=== PATIENT | male | born 1975 | race Caucasian/White ===

== ENCOUNTER 2016-12-03 15:52 | Emergency (ER) | payer BC ==
[2016-12-03 15:58] VITALS: BP 156/104; PULSE 116; TEMP 98.4; BMI 35.2
--- NOTE | 2016-12-03 16:24 | PDOC ---
History of Present Illness - General Chief Complaint: Rash Stated Complaint: RASH Time Seen by Provider: 12/03/16 16:18 - History of Present Illness Initial Comments: 12/03/16 16:42 Chief complaint: Poison carmencita History of present illness: Severe poison carmencita of the arms, trunk, and neck. Initially improved when he was prescribed prednisone approximately one week ago. On his last day of a taper, and symptoms appear to be worsening Physical exam: Alert oriented well-developed well-nourished no acute distress Afebrile, blood pressure initially elevated to 150/105, declining to 140/90 with rest Diffuse eczematous eruption without weeping or other sign of superinfection, worse on the left forearm and also present on the right forearm, abdomen, and neck. Impression: Poison carmencita, with rebound upon tapering of steroids Plan: Increase oral prednisone, wet-to-dry dressings, antihistamines, and close follow-up. Patient is aware of the detrimental effects of prednisone on blood pressure, sugar, and bone health. However, he must frequently uses prednisone for both his asthma and his skin eczema. Instructed to follow-up with link trainer mechanic if there is no improvement, and to taper his dose of prednisone after one week as rapidly as possible. Past History - Past Medical History Allergies/Adverse Reactions: Allergies Allergy/AdvReac Type Severity Reaction Status Date / Time No Known Drug Allergies Allergy Verified 12/03/16 15:53 Stock Ragweed Herberth Allergy Mild Itching Uncoded 12/03/16 15:53 *RETIRED-04/12/12 Home Medications: Ambulatory Orders Albuterol Sulfate [Proair Respiclick] 90 mcg IH DAILY 12/03/16 Aluminum Acetate [Burow's Solution -] 1 applic TP BID #1 btl 12/03/16 Lisinopril [Prinivil -] 40 mg PO DAILY 12/03/16 Metoprolol Succinate [Toprol XL -] 100 mg PO DAILY 12/03/16 Omeprazole 20 mg PO DAILY 12/03/16 Prednisone [Deltasone -] 40 mg PO DAILY #30 tablet 12/03/16 Anemia: No Asthma: Yes Cancer: No Cardiac Disorders: No CVA: No COPD: No CHF: No Dementia: No Diabetes: No GI Disorders: Yes (gerd) Disorders: No HTN: Yes Hypercholesterolemia: Yes Liver Disease: No Seizures: No Thyroid Disease: No - Surgical History Abdominal Surgery: Yes (LAPBAND) Appendectomy: No Cardiac Surgery: No Cholecystectomy: Yes Lung Surgery: No Neurologic Surgery: No Orthopedic Surgery: No - Immunization History Immunization Up to Date: Yes - Psycho/Social/Smoking Cessation Hx Anxiety: No Suicidal Ideation: No Smoking Status: Yes (QUIT 2004) Smoking History: Never smoked Have you smoked in the past 12 months: No Number of Cigarettes Smoked Daily: 2 If you are a former smoker, when did you quit?: 2006 Information on smoking cessation initiated: No 'Breaking Loose' booklet given: 10/09/15 Hx Alcohol Use: No Drug/Substance Use Hx: No Substance Use Type: None Hx Substance Use Treatment: No *Physical Exam - Vital Signs Last Vital Signs Temp Pulse Resp BP Pulse Ox 98.4 F 116 H 18 156/104 97 12/03/16 15:52 12/03/16 15:52 12/03/16 15:52 12/03/16 15:52 12/03/16 15:52 *DC/Admit/Observation/Transfer Diagnosis at time of Disposition: Rhus dermatitis - Discharge Dispostion Disposition: HOME Condition at time of disposition: Stable Admit: No - Prescriptions Prescriptions: Aluminum Acetate [Burow's Solution -] 1 applic TP BID #1 btl Prednisone [Deltasone -] 40 mg PO DAILY #30 tablet - Patient Instructions Printed Discharge Instructions: DI for Poison Carmencita Allergy Additional Instructions: Take Benadryl, especially at night, for itching, 1 or 2 capsules. Borrows solution wet-to-dry soaks See your primary physician 2-3 days to check your blood pressure and your sugar. Prednisone can adversely affect her blood pressure and sugar, as well as bones.
== END 2016-12-03 16:35 | disposition home or self-care (01) ==
LOC: FER 15:52
DX: L23.7 Allergic contact dermatitis due to plants, except food (principal); K21.9 Gastro-esophageal reflux disease without esophagitis; I10 Essential (primary) hypertension; E78.00 Pure hypercholesterolemia, unspecified; Z98.84 Bariatric surgery status; J45.909 Unspecified asthma, uncomplicated; Z87.891 Personal history of nicotine dependence
CPT/HCPCS: 99281-25

== ENCOUNTER 2019-07-31 13:02 | Emergency (ER) | payer OTHER, BC ==
[2019-07-31 13:13] VITALS: TEMP 97.8; BMI 30.5
[2019-07-31] MEDS ORDERED: ACETAMINOPHEN 500 MG TABLET (FP) PO ONE (13:15)
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
[2019-07-31] MEDS ORDERED: ONDANSETRON *ODT* 4 MG TABLET SL ONE (13:16)
[2019-07-31] MEDS ORDERED: ACETAMINOPHEN 325 MG TABLET (FP) ONE (13:41)
[2019-07-31] MEDS ORDERED: ONDANSETRON *ODT* 4 MG TABLET ONE (13:41)
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
[2019-07-31 14:44] LABS: COCAINE, UR NEGATIVE ng/ml (CUTOFF=300); METHADONE, UR NEGATIVE ng/ml (CUTOFF=300); OPIATES, URI NEGATIVE ng/ml (CUTOFF=300); PHENCYCLIDINE,URINE NEGATIVE ng/ml (CUTOFF=25); URINE BARBITURATES NEGATIVE ng/ml (CUTOFF=200); URINE BENZODIAZEPINES NEGATIVE ng/ml (CUTOFF=200)
[2019-07-31 14:46] LABS: URINE AMPHETAMINES POSITIVE ng/ml (CUTOFF=500)
[2019-07-31 17:59] VITALS: BP 160/85; PULSE 82
== END 2019-07-31 17:59 | disposition home or self-care (01) ==
LOC: JER 13:02
CPT/HCPCS: 36415; 70450-TC; 80307; 99283-25; Q0162

== ENCOUNTER 2023-08-11 11:06 | Emergency (ER) | payer BC ==
[2023-08-11 11:28] VITALS: BP 116/73; PULSE 113; RESP 16; TEMP 98.8; BMI 33.6
[2023-08-11 12:37] LABS: HEMATOCRIT 37.9 % (35.4-49); HEMOGLOBIN 12.9 G/dL (11.7-16.9); MCH 28.5 pg (25.7-33.7); MCHC 34.1 g/dl (32.0-35.9); MEAN CELL VOLUME 83.7 fl (80-96); MEAN PLT VOLUME 8.4 fl (7.5-11.1); PLATELET COUNT 329.7 10^3/uL (134-434); RBC 4.53 10^6/uL (4.00-5.60); RDW 15.4 % (11.9-15.9); WHITE BLOOD COUNT 11.6 10^3/uL (4.0-10.8)
[2023-08-11 12:39] LABS: PLATELET ESTIMATE ADEQUATE
[2023-08-11 13:15] LABS: ALBUMIN 3.9 g/dl (3.4-5.0); BILIRUBIN,TOTAL 0.8 mg/dl (0.2-1); CALCIUM 9.2 mg/dl (8.5-10.1); MAGNESIUM 1.9 mg/dL (1.8-2.4); POTASSIUM 3.8 mmol/L (3.5-5.1); TOT PROT 6.1 g/dl (6.4-8.2)
[2023-08-11 14:59] LABS: N-TERMINAL BNP 34.2 pg/ml (5-125)
== END 2023-08-11 15:29 | disposition home or self-care (01) ==
LOC: FER 11:06
DX: R07.9 Chest pain, unspecified (principal); M79.602 Pain in left arm
CPT/HCPCS: 36415; 71045-TC-FY; 80053; 83735; 83880; 84484; 85027; 85379; 93005; 99285-25